=== PATIENT | female | born 1975 | race Caucasian/White ===

== ENCOUNTER 2017-08-01 17:35 | Emergency (ER) | payer OTHER, BC ==
[2017-08-01 17:43] VITALS: RESP 18
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
[2017-08-01 20:09] VITALS: BP 143/69; PULSE 90; TEMP 98.6; O2SAT 96
== END 2017-08-01 20:07 | disposition home or self-care (01) ==
PROC: 0HQLXZZ Repair Left Lower Leg Skin, External Approach (ICD-10-PCS; principal; 2017-08-01)
DX: S81.012A Laceration without foreign body, left knee, initial encounter (principal); Z87.891 Personal history of nicotine dependence; V49.40XA Driver injured in collision with unspecified motor vehicles in traffic accident, initial encounter; Y92.410 Unspecified street and highway as the place of occurrence of the external cause; Y99.8 Other external cause status; Y93.89 Activity, other specified

== ENCOUNTER → 2018-06-17 | Outpatient (CLI) | payer BC | LOC: FIMAGING 12:21 | PROVIDERS: ATTEND Internal Medicine | DX: R92.8 Other abnormal and inconclusive findings on diagnostic imaging of breast (principal); R59.0 Localized enlarged lymph nodes ==